=== PATIENT | male | born 1945 | race Caucasian/White ===

== ENCOUNTER 2018-12-22 02:35 | Emergency (ER) | payer MEDICARE, OTHER ==
[2018-12-22 03:57] LABS: ADD MAN DIFF? NO
[2018-12-22 04:17] LABS: WHITE BLOOD COUNT 6.6 10^3/ul (4.8-10.8)
[2018-12-22 04:17] LABS: BASOPHILS % 0.6 % (0.0-2.0); EOSINOPHILS # 0.2 10^3/ul (0.0-0.5); HEMOGLOBIN 13.6 g/dl (14.0-18.0); LYMPHOCYTES # 2.9 10^3/ul (0.8-2.9); LYMPHOCYTES % 43.5 % (15.0-51.0); MEAN CORPUSCULAR HEMOGLOBIN 31.3 pg (29.0-33.0); MEAN CORPUSCULAR HGB CONC 33.2 g/dl (32.0-37.0); MEAN CORPUSCULAR VOLUME 94.5 fl (82.0-101.0); MEAN PLATELET VOLUME 10.7 fl (7.4-10.4); MONOCYTE # 0.5 10^3/ul (0.3-0.9); MONOCYTES % 7.2 % (0.0-11.0); NEUTROPHILS % 45.4 % (39.0-77.0); PLATELET COUNT 168 10^3/UL (140-415); RED BLOOD COUNT 4.34 10^6/ul (4.70-6.10)
[2018-12-22 04:24] LABS: ALANINE AMINOTRANSFERASE 18 IU/L (13-69); ALBUMIN 4.4 g/dl (3.3-4.9); ALBUMIN/GLOBULIN RATIO 1.37; ALKALINE PHOSPHATASE 51 IU/L (42-121); AMYLASE 139 U/L (11-123); ANION GAP 7 (5-13); ASPARTATE AMINO TRANSFERASE 33 IU/L (15-46); BILIRUBIN,INDIRECT 0.4 mg/dl (0-1.1); BILIRUBIN,TOTAL 0.4 mg/dl (0.2-1.3); BLOOD UREA NITROGEN 23 mg/dl (7-20); CALCIUM 10.3 mg/dl (8.4-10.2); CARBON DIOXIDE 27 mmol/L (21-31); CHLORIDE 107 mmol/L (97-110); CREATININE 1.67 mg/dl (0.61-1.24); GLUCOSE 134 mg/dl (70-220); LIPASE 82 U/L (23-300); POTASSIUM 4.9 mmol/L (3.5-5.1); SODIUM 141 mmol/L (135-144); TOTAL PROTEIN 7.6 g/dl (6.1-8.1)
[2018-12-22] MEDS: MAGNESIUM CITRATE 300 ML BTL PO (04:53)
== END 2018-12-22 05:06 | disposition home or self-care (01) ==
LOC: E/R 02:35
DX: K59.00 Constipation, unspecified (principal); I25.10 Atherosclerotic heart disease of native coronary artery without angina pectoris; I10 Essential (primary) hypertension; Z79.82 Long term (current) use of aspirin; Z95.1 Presence of aortocoronary bypass graft
CPT/HCPCS: 74018; 80053; 80076; 82150; 83690; 85025; 99284-25

== ENCOUNTER 2019-04-25 16:07 | Observation (INO) | payer OTHER, MEDICAID, MEDICARE ==
[2019-04-25 16:41] LABS: HEMATOCRIT 35.4 % (42.0-52.0); HEMOGLOBIN 12.1 g/dl (14.0-18.0); MEAN CORPUSCULAR HEMOGLOBIN 32.3 pg (29.0-33.0); MEAN CORPUSCULAR HGB CONC 34.2 g/dl (32.0-37.0); MEAN CORPUSCULAR VOLUME 94.4 fl (82.0-101.0); MEAN PLATELET VOLUME 10.1 fl (7.4-10.4); PLATELET COUNT 174 10^3/UL (140-415); RED BLOOD COUNT 3.75 10^6/ul (4.70-6.10)
[2019-04-25 16:41] LABS: WHITE BLOOD COUNT 5.4 10^3/ul (4.8-10.8)
[2019-04-25 16:44] LABS: ADD MAN DIFF? YES
[2019-04-25] MEDS: NITROGLYCERIN 2% 1 GM OINT PKT TD (16:54)
[2019-04-25] MEDS: ASPIRIN 81 MG TAB PO (16:54)
[2019-04-25 17:01] LABS: ANION GAP 8 (5-13); BLOOD UREA NITROGEN 11 mg/dl (7-20); CALCIUM 9.8 mg/dl (8.4-10.2); CARBON DIOXIDE 25 mmol/L (21-31); CHLORIDE 100 mmol/L (97-110); GLUCOSE 93 mg/dl (70-220); POTASSIUM 4.9 mmol/L (3.5-5.1); SODIUM 133 mmol/L (135-144)
[2019-04-25 17:12] LABS: TROPONIN-I < 0.012 ng/ml (0.000-0.120)
[2019-04-25 17:33] LABS: BASOPHILS % (M) 1 % (0-2); GIANT THROMBO% (M) 1 % (0-0); LYMPHOCYTES #M 2.9 10^3/ul (0.8-2.9); LYMPHOCYTES % (M) 54 % (15-51); MONOCYTE #M 0.4 10^3/ul (0.3-0.9); MONOCYTES % (M) 8 % (0-11); PLATELET ESTIMATE NORMAL; POLYCHROMASIA 1+ (0-0); REACTIVE LYMPHOCYTES #M 0.2 10^3/ul (0.0-0.0); REACTIVE LYMPHOCYTES% (M) 5 % (0-0); SEGMENTED NEUTROPHILS (M) % 32 % (39-77); SMUDGE%M 2 % (0-0)
[2019-04-25] MEDS ORDERED: ONDANSETRON 4 MG INJ IV (18:30)
[2019-04-25] MEDS ORDERED: ACETAMINOPHEN 325 MG TAB PO ×2 (18:30→23:00)
[2019-04-25 22:51] LABS: CREATINE KINASE 91 IU/L (23-200)
[2019-04-25] MEDS ORDERED: ZOLPIDEM 5 MG TAB PO (23:00)
[2019-04-25 23:03] LABS: CK INDEX 1.4; CK-MB 1.27 ng/ml (0.0-2.4); TROPONIN-I < 0.012 ng/ml (0.000-0.120)
[2019-04-26] MEDS: TAMSULOSIN (SR) 0.4 MG CAP PO (01:01)
[2019-04-26] MEDS: ATORVASTATIN 10 MG TAB PO (01:01)
[2019-04-26 01:59] LABS: TROPONIN-I < 0.012 ng/ml (0.000-0.120)
[2019-04-26 05:50] LABS: CREATINE KINASE 84 IU/L (23-200)
[2019-04-26 05:57] LABS: CK INDEX 1.1; CK-MB 0.96 ng/ml (0.0-2.4); TROPONIN-I 0.013 ng/ml (0.000-0.120)
[2019-04-26] MEDS: PANTOPRAZOLE (EC) 40 MG TAB PO (07:02)
[2019-04-26] MEDS: FINASTERIDE 5 MG TAB PO (09:14)
[2019-04-26] MEDS: METOPROLOL 25 MG TAB PO (09:14)
[2019-04-26] MEDS: ASPIRIN (EC) 81 MG TAB PO (09:14)
[2019-04-26] MEDS: REGADENOSON 0.4 MG/5 ML SYG (11:54)
[2019-04-26] MEDS ORDERED: TAMSULOSIN (SR) 0.4 MG CAP PO (21:00)
[2019-04-26] MEDS ORDERED: ATORVASTATIN 10 MG TAB PO (21:00)
== END 2019-04-26 15:50 | disposition home or self-care (01) ==
LOC: E/R 16:07 → 6WM 18:13
DX: R07.9 Chest pain, unspecified (principal); I25.10 Atherosclerotic heart disease of native coronary artery without angina pectoris; Z95.1 Presence of aortocoronary bypass graft; E78.5 Hyperlipidemia, unspecified; I10 Essential (primary) hypertension; F32.9 Major depressive disorder, single episode, unspecified; K21.9 Gastro-esophageal reflux disease without esophagitis; N40.0 Benign prostatic hyperplasia without lower urinary tract symptoms; Z79.82 Long term (current) use of aspirin
CPT/HCPCS: 71045; 78452; 80048; 82550; 82553; 84484; 85025; 93005; 93017; 93306; 99285-25; G0378